=== PATIENT | female | born 1980 | race Caucasian/White ===

== ENCOUNTER 2017-01-12 17:46 | Inpatient (IN) | payer OTHER ==
[~2017-01-12] VITALS: Ht 157.5 cm; Wt 68.0 kg
[2017-01-12] MEDS ORDERED: GABA600T PO (18:19)
[2017-01-12] MEDS ORDERED: CLON-412 PO (18:19)
[2017-01-12] MEDS ORDERED: VANCOMYCIN HCL 1,000 MG, VIAL MATE ADAPTER 1 EACH in D5W 250 ML IV ONE (20:00)
[2017-01-12] MEDS ORDERED: ONDANSETRON 4MG/2ML VIAL (J2405) IV ONE (20:00)
[2017-01-12] MEDS ORDERED: CEFEPIME HCL 2 GM in D5W MINI-BAG PLUS 50 ML IV ONE (20:00)
[2017-01-12] MEDS ORDERED: MORPHINE 4 MG/ML 1ML SYRINGE IV ONE ×2 (20:00→21:45)
[2017-01-12] MEDS ORDERED: NS 1,000 ML IV ONE (20:00)
[2017-01-12] MEDS ORDERED: LIDOCAINE 4% CREAM 5GM (LMX4) TOP ONE (20:00)
[2017-01-12] MEDS ORDERED: LIDOCAINE 2% MDV 20 ML VIAL XX ONE (20:00)
[2017-01-12 21:10] LABS: BASO # 0.1 K/mm3 (0.0-0.2); BASO % 0.5 % (0.0-1.0); EOS # 0.2 K/mm3 (0.0-0.50); EOS % 1.2 % (0.0-3.0); LARGE UNSTAINED CELL # 0.2 K/mm3 (0.0-0.4); LARGE UNSTAINED CELL % 1.3 % (0.0-4.0); LYMPH # 2.8 K/mm3 (1.5-4.5); MEAN CORPUSCULAR HEMOGLOBIN 30.2 pg (27.0-33.0); MEAN CORPUSCULAR HGB CONC 32.1 g/dl (32.0-36.5); MEAN CORPUSCULAR VOLUME 94.1 fl (80.0-96.0); MONO # 0.7 K/mm3 (0.0-0.8); MONO % 4.8 % (0.0-5.0); NEUTROPHILS # 10.7 K/mm3 (1.8-7.7); NEUTROPHILS % 73.1 % (36.0-66.0); PLATELET COUNT, AUTOMATED 379 k/mm3 (150-450); RED CELL DISTRIBUTION WIDTH 12.1 % (11.5-14.5); WHITE BLOOD COUNT 14.6 K/mm3 (4.0-10.0)
[2017-01-12 21:32] LABS: ANION GAP 7 MEQ/L (8-16); BLOOD UREA NITROGEN 12 MG/DL (7-18); CALCIUM LEVEL 8.3 MG/DL (8.5-10.1); CARBON DIOXIDE LEVEL 26 MEQ/L (21-32); CHLORIDE LEVEL 104 MEQ/L (98-107); CREATININE FOR GFR 0.56 MG/DL (0.55-1.02); GLOMERULAR FILTRATION RATE > 60.0 (>60); GLUCOSE, FASTING 128 MG/DL (70-105); POTASSIUM SERUM 4.1 MEQ/L (3.5-5.1); SODIUM LEVEL 137 MEQ/L (136-145)
[2017-01-12 21:40] LABS: ERYTHROCYTE SEDIMENTATION RATE 33 mm/hr (0-20)
[2017-01-12] MEDS ORDERED: NS 1,000 ML IV SCH ×2 (22:46→23:00)
[2017-01-12] MEDS ORDERED: SODIUM CHLORIDE 0.9% 1000 ML IV ONE (23:00)
--- NOTE | 2017-01-12 23:43 | HPEPDOC ---
General Date of Admission Jan 12, 2017 at 22:46 Chief Complaint The patient is a 36-year-old female Presented to the ER with complaints of a left forearm abscess. History of Present Illness Patient is a 36 year old female with a PMHx of recently diagnosed right breast cancer and substance abuse history (Heroin) who presented to the ER with complaint of an abscess. Patient noted that over the last 3 days, she has had a small bump on her left forearm that has progressively worsened to the point where it has become the size of a golf ball. She notes that the area was extremely tender, swollen and red. She denied any drainage from the area. She denies any recent trauma, bug bites or needle use to her arm. She denies any fevers at home. Patient has used IV heroin in the past and reports the last time she used was in September. Since that point she has not used any IV drugs. She reports that she has been taking suboxone that is not prescribed to her to help her control her habit. She reports the last time she used suboxone was yesterday at 4mg SL. She denies any chest pain, shortness of breath, cough, nausea, vomiting, abdominal pain, constipation, diarrhea or urinary symptoms. Home Medications Scheduled Clonidine Hydrochloride (Clonidine HCl) 0.1 Mg Tab 0.1 MG PO TID (Reported) Gabapentin (Gabapentin) 600 Mg Tab 600 MG PO TID (Reported) Allergies Coded Allergies: Codeine (Verified Allergy, Intermediate, hives, 01/12/17) Past Medical History Medical History Recently diagnosed right breast cancer and substance abuse history (Heroin) Surgical History None Family History - Mother with DM2 - Father with DM2 and pancreatic cancer Social History - Denies the use of alcohol; Smoke 1-2 cigarettes occasionally for 5 years, Heroin and marijuana use - Denies recent travel or sick contacts - Lives with boyfriend - Occupation; unemployed forging operator Review of Symptoms Other systems Constitutional: Denies weight loss, change in appetite, or recent trauma Eyes: No visual changes or eye pain Ears, Nose, Throat: Denies nose bleeds, or difficulty swallowing Cardiovascular: Denies chest pain, sweating, or orthopnea Respiratory: Denies cough, wheezing, or shortness of breath GI: Gavino nausea, vomiting, abdominal pain, diarrhea or constipation : Denies pain with urination or frequency Musculoskeletal: Pain at left forearm with abscess Neuro / Psych: Denies muscle weakness or sensory loss Skin: Redness and swelling at left arm at abscess All other review of systems negative; otherwise stated in history of present illness Vital Signs - Vitals: BP 110/52, HR 117, RR 18, Sat 96%RA, Temp 97.8F - General: Lying in bed, No acute distress, Speaking in full sentences, AAOx3 - HEENT: NC, AT, PERRLA, EOMI - CVS: RRR, +S1S2, - Murmurs / rubs / gallops - Lungs: Fair air entry bilaterally, Clear to auscultation, No wheezing / rales / rhonchi - Abdomen: Soft, Non-distended, Non-tender, + Bowel sounds x 4 - Extremities: + PPx4, No lower extremity edema, No calf tenderness - Neuro: No focal motor or sensory defecit - Skin: Left forearm with dressing in place (s/p incision and drainage in ER), no lymphadenopathy or surrounding erythema, tenderness around area Laboratory Data Labs 24H Laboratory Tests 2 01/12/17 20:58: White Blood Count 14.6H, Red Blood Count 4.22, Hemoglobin 12.8, Hematocrit 39.8 , Mean Corpuscular Volume 94.1, Mean Corpuscular Hemoglobin 30.2, Mean Corpuscular Hemoglobin Concent 32.1, Red Cell Distribution Width 12.1, Platelet Count 379, Neutrophils (%) (Auto) 73.1H, Lymphocytes (%) (Auto) 19.0L, Monocytes (%) (Auto) 4.8, Eosinophils (%) (Auto) 1.2, Basophils (%) (Auto) 0.5, Neutrophils # (Auto) 10.7H, Lymphocytes # (Auto) 2.8, Monocytes # (Auto) 0.7, Eosinophils # (Auto) 0.2, Basophils # (Auto) 0.1, Erythrocyte Sedimentation Rate 33H, Large Unclassified Cells # 0.2, Large Unclassified Cells % 1.3 01/12/17 21:06: Anion Gap 7L, C-Reactive Protein, Quantitative 3.98H, Blood Urea Nitrogen 12, Creatinine 0.56, Sodium Level 137, Potassium Level 4.1, Chloride Level 104, Carbon Dioxide Level 26, Calcium Level 8.3L, Glomerular Filtration Rate > 60.0, Lactic Acid (Sepsis) 1.5 CBC/BMP Laboratory Tests 01/12/17 20:58 Red Blood Count 4.22, Mean Corpuscular Volume 94.1, Mean Corpuscular Hemoglobin 30.2, Mean Corpuscular Hemoglobin Concent 32.1, Red Cell Distribution Width 12.1 , Neutrophils (%) (Auto) 73.1 H, Lymphocytes (%) (Auto) 19.0 L, Monocytes (%) ( Auto) 4.8, Eosinophils (%) (Auto) 1.2, Basophils (%) (Auto) 0.5, Neutrophils # ( Auto) 10.7 H, Lymphocytes # (Auto) 2.8, Monocytes # (Auto) 0.7, Eosinophils # ( Auto) 0.2, Basophils # (Auto) 0.1 01/12/17 21:06 Calcium Level 8.3 L Microbiology Microbiology 01/12/17 Blood Culture, Received Pending 01/12/17 Blood Culture, Received Pending Plan / VTE VTE Prophylaxis Ordered?: Yes Plan Plan Abscess and Cellulitis of left arm possibly 2/2 drug use however denies trauma or needle use - Presented with worsening bump on arm for last 3 days, no reported fevers at home - Patient has received an incision and drainage in the ER - Physical reveals tenderness around surrounding area, no lymphadenopathy, dressing in place - s/p Vancomycin and Zosyn in the ER - Leukocytosis of 14, No elevation in lactic acid - Will follow blood cultures, abscess cultures - Will provide minimal morphine for pain control (re: drug abuse history) - will c/w Ceftaroline for coverage of MRSA and gram negative organisms Recently diagnosed right breast cancer - Patient has had a mammogram and biopsy done that was consistent with cancer - Patient is schedule to have a right mastectomy on 01/22 - Follows with Dr. Watts (Surgery) Substance abuse history - Has abuse heroin, and last use was in September - Has been on Clonidine for blood pressure and Gabapentin for restlessness - Will c/w home medications DVT prophylaxis - Will start KARRI Esposito MD Jan 12, 2017 23:42
[2017-01-13 00:30] VITALS: BP 134/72
[2017-01-13] MEDS: ACETAMINOPHEN TAB 650MG DOSE (2X325MG) PO PRN ×2 (00:44→09:29)
[2017-01-13] MEDS: MORPHINE 2 MG/ML 1ML SYRINGE IV PRN ×5 (01:21→20:56)
[2017-01-13 06:00] VITALS: BP 121/72
[2017-01-13] MEDS: CEFTAROLINE FOSAMIL 600 MG in D5W MINI-BAG PLUS 50 ML IV SCH ×2 (06:27→17:59)
[2017-01-13] MEDS: ENOXAPARIN 40 MG/0.4 ML SYRINGE (J1650) SC SCH (09:29)
[2017-01-13] MEDS: cloNIDine 0.1 MG TAB PO SCH ×3 (09:30→20:57)
[2017-01-13] MEDS: GABAPENTIN 300 MG CAP PO SCH ×3 (09:30→20:56)
[2017-01-13] MEDS: NICOTINE 14 MG/24 HR TRANSDERMAL TD SCH (10:19)
[2017-01-13 14:00] VITALS: BP 126/77
--- NOTE | 2017-01-13 15:04 | IPN ---
DATE: 01/13/2017 SUBJECTIVE: Patient is seen and examined in the room today. Patient is still complaining about pain at the left forearm where she had abscess incision and drainage. Patient had a temperature of 101.2 around 1 a.m. She stated her fever has been improving since then. Patient is requesting nicotine patch due to the urge to smoke. OBJECTIVE: VITAL SIGNS: Temperature 99.2, pulse 92, respirations 16, blood pressure 121/72 , pulse oximetry 99% in room air. GENERAL: No sign of acute distress, alert and oriented times three. HEENT: Normocephalic, atraumatic. Extraocular motors grossly intact. CARDIOVASCULAR: Positive S1, S2, regular rate. LUNGS: Clear to auscultation bilaterally. ABDOMEN: Soft, nontender, nondistended. Bowel sounds present. No rebound. No guarding. EXTREMITIES: Left forearm was wrapped with gauze. No active bleeding is noted. No lower extremity edema. No sign of cyanosis. LABORATORY DATA: WBC 14.6, hemoglobin 12.8, hematocrit 39.8, platelet count 379. Sodium 137, potassium 4.1, chloride 104, carbon dioxide 26, BUN 12, creatinine 0.56, GFR greater than 60, fasting glucose 128, lactic acid 1.5, calcium 8.3, C-reactive protein 3.98. ASSESSMENT AND PLAN: 1. Left forearm abscess. Patient stated she has a history of scratching her left forearm with her fake nails multiple times. She felt that was the reason why she started to develop the abscess. Patient was started on ceftaroline. Patient's fever is improving. Pain controlled with morphine. Follow with cultures. 2. Recently diagnosed right breast cancer. Patient has a scheduled right mastectomy on 01/22/2017. Surgeon is Dr. Watts. 3. History of polysubstance abuse. Patient is on clonidine and gabapentin. Previous Urine toxicology positive for opiates, codeine, morphine, methadone, cocaine, and marijuana. 4. Deep venous thrombosis (DVT) prophylaxis, on Lovenox. MTDD
[2017-01-13 22:00] VITALS: BP 117/56
[2017-01-14] MEDS: MORPHINE 2 MG/ML 1ML SYRINGE IV PRN ×4 (05:38→20:08)
[2017-01-14] MEDS: CEFTAROLINE FOSAMIL 600 MG in D5W MINI-BAG PLUS 50 ML IV SCH ×2 (05:39→18:09)
[2017-01-14 06:00] VITALS: BP 107/54
[2017-01-14] MEDS: cloNIDine 0.1 MG TAB PO SCH ×3 (09:00→20:04)
[2017-01-14] MEDS: GABAPENTIN 300 MG CAP PO SCH ×3 (09:26→20:04)
[2017-01-14] MEDS: ENOXAPARIN 40 MG/0.4 ML SYRINGE (J1650) SC SCH (09:26)
[2017-01-14] MEDS: NICOTINE 14 MG/24 HR TRANSDERMAL TD SCH (09:26)
--- NOTE | 2017-01-14 11:57 | IPN ---
DATE OF VISIT: 01/14/2017 SUBJECTIVE: Patient is seen and examined in the room today. With assistance from our staff, patient's dressing was taken of and patient's wound was examined. Patient's still complained about significant pain in her left forearm and even with slight compression, patient was screaming in pain. However, there is no purulent discharge noted. Yesterday, in the afternoon, there was an incident patient went downstairs with her boyfriend without notifying the staff and nursing supervisor special services called and informed. OBJECTIVE: VITAL SIGNS: Temperature is 98.2, pulse 70, respirations 16, blood pressure is 107/54, pulse oximetry is 99% in room air. GENERAL: Moderate to severe distress during wound examination. Alert, oriented times three. HEENT: Normocephalic, atraumatic. Extraocular motors grossly intact. CARDIOVASCULAR: Positive S1, S2, regular rate. LUNGS: Clear to auscultation bilaterally. ABDOMEN: Soft, nontender, nondistended. Bowel sounds present. No rebound. No guarding. EXTREMITIES: Left forearm wounds that . There at least more regression erythema compared to the borders, went by the surgical markers. There is some purulent discharge noted on the dressing. No active bleeding noted. Extremity tendon is still on the erythematous area. However, I cannot appreciate any abscess pockets. There are multiple tattoos throughout her body. No lower extremity edema. No sign of cyanosis. LABORATORY DATA: Patient refused the lab. ASSESSMENT AND PLAN: 1. Left forearm abscess status post incision and drainage. Abscess wound culture result is pending. Preliminary result show gram positive cocci. Patient has been taking Teflaro. Blood culture results pending. 2. Recent diagnosis of right breast cancer. Patient has a scheduled right mastectomy on 01/22/2017. Surgeon is Dr. Watts. 3. History of polysubstance abuse. On clonidine and gabapentin. Urine toxicology positive for opiate and marijuana. 4. Deep venous thrombosis (DVT) prophylaxis. On Lovenox.
[2017-01-14 14:00] VITALS: BP 116/58
[2017-01-14] MEDS: NAPROXEN 250 MG TAB PO SCH (18:51)
[2017-01-14] MEDS ORDERED: MORPHINE 2 MG/ML 1ML SYRINGE IV ONE (19:00)
[2017-01-14 20:04] VITALS: BP 118/74
[2017-01-14] MEDS ORDERED: NAPROXEN 250 MG TAB PO SCH (21:00)
[2017-01-14 22:00] VITALS: BP 118/74
[2017-01-15] MEDS: MORPHINE 2 MG/ML 1ML SYRINGE IV PRN ×2 (00:35→05:01)
[2017-01-15] MEDS: CEFTAROLINE FOSAMIL 600 MG in D5W MINI-BAG PLUS 50 ML IV SCH (05:02)
[2017-01-15 06:00] VITALS: BP 107/55
[2017-01-15] MEDS: NAPROXEN 250 MG TAB PO SCH (06:22)
[2017-01-15 07:02] LABS: BASO % 0.6 % (0.0-1.0); EOS # 0.1 K/mm3 (0.0-0.50); EOS % 2.2 % (0.0-3.0); LARGE UNSTAINED CELL # 0.1 K/mm3 (0.0-0.4); LARGE UNSTAINED CELL % 1.9 % (0.0-4.0); LYMPH # 2.1 K/mm3 (1.5-4.5); LYMPH % 36.6 % (24.0-44.0); MEAN CORPUSCULAR HEMOGLOBIN 30.1 pg (27.0-33.0); MEAN CORPUSCULAR HGB CONC 31.8 g/dl (32.0-36.5); MEAN CORPUSCULAR VOLUME 94.7 fl (80.0-96.0); MONO # 0.4 K/mm3 (0.0-0.8); MONO % 7.4 % (0.0-5.0); NEUTROPHILS % 51.3 % (36.0-66.0); PLATELET COUNT, AUTOMATED 327 k/mm3 (150-450); WHITE BLOOD COUNT 5.8 K/mm3 (4.0-10.0)
[2017-01-15 07:16] LABS: ALBUMIN 3.1 GM/DL (3.2-5.2); ALBUMIN/GLOBULIN RATIO 0.89 (1.00-1.93); ALKALINE PHOSPHATASE 68 U/L (45-117); ALT/SGPT 31 U/L (12-78); ANION GAP 8 MEQ/L (8-16); AST/SGOT 30 U/L (15-37); BILIRUBIN,TOTAL 0.2 MG/DL (0.2-1.0); BLOOD UREA NITROGEN 12 MG/DL (7-18); CALCIUM LEVEL 8.7 MG/DL (8.5-10.1); CARBON DIOXIDE LEVEL 27 MEQ/L (21-32); CHLORIDE LEVEL 108 MEQ/L (98-107); CREATININE FOR GFR 0.55 MG/DL (0.55-1.02); GLOMERULAR FILTRATION RATE > 60.0 (>60); GLUCOSE, FASTING 98 MG/DL (70-105); MAGNESIUM LEVEL 2.1 MG/DL (1.8-2.4); POTASSIUM SERUM 4.3 MEQ/L (3.5-5.1); SODIUM LEVEL 143 MEQ/L (136-145); TOTAL PROTEIN 6.6 GM/DL (6.4-8.2)
--- NOTE | 2017-01-15 17:31 | DSES ---
DATE OF ADMISSION: 01/12/2017 DATE OF DISCHARGE: 01/15/2017 - AGAINST MEDICAL ADVICE CONSULTANTS: None. PROCEDURES: Left forearm abscess incision and drainage. COMPLICATIONS: None. ADMISSION/DISCHARGE DIAGNOSES: 1. Left forearm abscess status post incision and drainage. 2. Recent diagnosis of breast cancer. 3. Polysubstance abuse. HOSPITALIZATION COURSE: Patient is a 36-year-old female who presented to [facility] on 01/12/2017, with left forearm abscess. Incision and drainage was performed by the emergency department (ED) staff and culture was taken. Patient was started on empiric antibiotic of Teflaro. Due to patient's polysubstance use, pain medication was adjusted with caution. All the patient's vital signs and blood work, including cultures, were reviewed on a daily basis. On 01/15/2017, before gram stain culture finalization, patient decided to sign herself out AGAINST MEDICAL ADVICE. During this hospitalization, patient had an incident where she walked out of her room with her significant other and she walked to the first floor lobby without informing any medical staff and patient walked back to the room and the nursing supervisor irrigation had to be involved with the incident. OBJECTIVE: VITAL SIGNS: Temperature 97.1, pulse 72, respirations 16, blood pressure 107/55, pulse oximetry 100% in room air. LABORATORY DATA: WBC 5.8, hemoglobin 12.8, hematocrit 40.2, platelet count 327. Sodium 143, potassium 4.3, chloride 108, carbon dioxide 27, BUN 12, creatinine 0.55, GFR greater than 60, fasting glucose 98, lactic acid 1.5, calcium 8.7, magnesium 2.1, total bilirubin 0.2, AST 30, ALT 31, alkaline phosphatase 68, total protein 6.6, albumin 3.1. Urine toxicology showed positive for opiates and marijuana. Prior urine toxicology showed patient is positive for marijuana in 2009. Patient started showing positive for opiates, codeine, and morphine in 2010. Patient also tested positive for methadone in 2010. Patient also tested positive for cocaine in 2010. MICROBIOLOGY: Blood cultures are negative after 48 hours. Wound abscess culture is pending. DISCHARGE INSTRUCTIONS: Patient signed out AGAINST MEDICAL ADVICE. I explained to the patient that currently patient is on empiric antibiotics and patient still requires active wound care and to be continued on IV antibiotics. I explained to the patient the benefits of staying in the hospital and the risks of signing out AGAINST MEDICAL ADVICE, and patient does not have any established primary care provider (PCP). However, patient insists that she does not want to stay in the hospital, and signed out AGAINST MEDICAL ADVICE. DISCHARGE CONDITION: Guarded. DISCHARGE TIME: Greater than 30 minutes.
== END 2017-01-15 08:45 | disposition left against medical advice (07) | DRG 383 ==
LOC: M ED 18:57 → M ED INP 22:46 → M MS5PR 01-13 00:27
PROVIDERS: ADMIT Internal Medicine; ATTEND Internal Medicine
DX: L02.414 Cutaneous abscess of left upper limb (principal); C50.919 Malignant neoplasm of unspecified site of unspecified female breast; F12.10 Cannabis abuse, uncomplicated; F11.10 Opioid abuse, uncomplicated; Z79.899 Other long term (current) drug therapy; Z88.5 Allergy status to narcotic agent

== ENCOUNTER → 2017-01-17 | Outpatient (CLI) | payer OTHER ==
[~2017-01-17] MED LIST: CLON-412 PO; GABA600T PO
--- NOTE | 2017-01-17 16:30 | REP ---
MR BRAIN WITHOUT CONTRAST: HISTORY: Breast carcinoma. No contrast was administered due to poor venous access. There are no areas of abnormal signal intensity in the brain. There is no intraparenchymal hemorrhage, infarct, mass or midline shift. The ventricular system is normal in appearance. There is no extracerebral collection. The sinuses are clear. IMPRESSION: There is no intracranial lesion. Signed by Moris Mcclelland MD 01/17/2017 04:35 P
== END ==
LOC: M RAD 15:09
PROVIDERS: ATTEND Internal Medicine Hematology & Oncology
DX: R51 Headache (principal); H53.9 Unspecified visual disturbance; C50.919 Malignant neoplasm of unspecified site of unspecified female breast

== ENCOUNTER 2017-03-21 14:22 | Emergency (ER) | payer OTHER ==
[~2017-03-21] VITALS: Ht 157.5 cm; Wt 61.2 kg
[2017-03-21 14:22] VITALS: BP 126/81
[2017-03-21] MEDS ORDERED: MIRT30TA3 (14:53)
[2017-03-21] MEDS ORDERED: TAMO20TA4 (14:53)
[2017-03-21] MEDS ORDERED: IBUP600T26 PO (14:53)
[2017-03-21] MEDS ORDERED: PRED20TA PO (15:18)
[2017-03-21] MEDS ORDERED: GABA600T PO (15:18)
== END 2017-03-21 15:28 | disposition home or self-care (01) ==
LOC: M ED 15:25
DX: G56.01 Carpal tunnel syndrome, right upper limb (principal); B18.2 Chronic viral hepatitis C; F11.10 Opioid abuse, uncomplicated; F17.210 Nicotine dependence, cigarettes, uncomplicated; G25.81 Restless legs syndrome; Z85.3 Personal history of malignant neoplasm of breast; Z79.899 Other long term (current) drug therapy; I10 Essential (primary) hypertension; Z87.442 Personal history of urinary calculi

== ENCOUNTER 2017-03-25 21:11 | Emergency (ER) | payer OTHER ==
[~2017-03-25] VITALS: Ht 157.5 cm; Wt 59.0 kg
[~2017-03-25 21:11] MED LIST changes: +IBUP600T26 PO; +MIRT30TA3; +PRED20TA PO; +TAMO20TA4
[2017-03-25 21:12] VITALS: BP 142/91
[2017-03-25] MEDS ORDERED: KETOROLAC 60 MG/2 ML VIAL (J1885) IM ONE (22:15)
--- NOTE | 2017-03-25 23:00 | REPUSA ---
Clinical statement: Pain, swelling. Findings: Venous Doppler imaging of the right upper extremity was performed. The internal jugular vei n compresses normally and demonstrates normal color Doppler flow. Normal venous wave forms are seen w ithin the subclavian vein. The axillary, brachial, basilic, and cephalic veins compress normally and demonstrate normal color Doppler flow. Normal augmentation is seen. Impression: No evidence of deep vein thrombosis in the right upper extremity.
== END 2017-03-27 00:02 | disposition home or self-care (01) ==
LOC: M ED 21:11
DX: G56.01 Carpal tunnel syndrome, right upper limb (principal); I10 Essential (primary) hypertension; B18.2 Chronic viral hepatitis C; G25.81 Restless legs syndrome; Z85.3 Personal history of malignant neoplasm of breast; F19.10 Other psychoactive substance abuse, uncomplicated; Z79.899 Other long term (current) drug therapy; Z79.52 Long term (current) use of systemic steroids; Z88.5 Allergy status to narcotic agent; F17.210 Nicotine dependence, cigarettes, uncomplicated

== ENCOUNTER 2017-04-25 15:30 | Emergency (ER) | payer OTHER ==
[~2017-04-25] VITALS: Ht 157.5 cm; Wt 66.2 kg
[~2017-04-25 15:30] MED LIST changes: +IBUP-1022 PO; -IBUP600T26 PO
[2017-04-25 15:31] VITALS: BP 114/70
== END 2017-04-25 17:11 | disposition left against medical advice (07) ==
LOC: M ED 15:30
DX: M79.643 Pain in unspecified hand (principal); Z53.29 Procedure and treatment not carried out because of patient's decision for other reasons

== ENCOUNTER 2017-05-22 17:03 | Emergency (ER) | payer OTHER ==
[~2017-05-22] VITALS: Ht 154.9 cm; Wt 68.4 kg
[2017-05-22 17:03] VITALS: BP 139/84
== END 2017-05-22 17:28 | disposition left against medical advice (07) ==
LOC: M ED 17:03
DX: K08.89 Other specified disorders of teeth and supporting structures (principal); Z53.29 Procedure and treatment not carried out because of patient's decision for other reasons

== ENCOUNTER 2017-06-19 12:34 | Emergency (ER) | payer OTHER ==
[~2017-06-19] VITALS: Ht 157.5 cm; Wt 63.6 kg
[2017-06-19] MEDS ORDERED: NAPROXEN 250 MG TAB PO ONE (13:45)
[2017-06-19] MEDS ORDERED: BACTRIM 160MG/800MG DS TAB PO ONE (13:45)
[2017-06-19] MEDS ORDERED: IBUP80TA PO (13:48)
[2017-06-19] MEDS ORDERED: MUCI600T37 PO (13:48)
[2017-06-19] MEDS ORDERED: CLAR1TAB2 PO (13:48)
[2017-06-19] MEDS ORDERED: BACT800T5 PO (13:48)
[2017-06-19 13:56] VITALS: BP 146/92
== END 2017-06-19 14:03 | disposition home or self-care (01) ==
LOC: M ED 12:34
DX: K04.7 Periapical abscess without sinus (principal); J01.90 Acute sinusitis, unspecified; Z72.0 Tobacco use

== ENCOUNTER → 2017-06-28 | Outpatient (CLI) | payer OTHER ==
[~2017-06-28] MED LIST changes: +BACT800T5 PO; +CLAR1TAB2 PO; +IBUP80TA PO; +MUCI600T37 PO
[2017-06-28 15:45] LABS: ANION GAP 7 MEQ/L (8-16); BLOOD UREA NITROGEN 6 MG/DL (7-18); CALCIUM LEVEL 8.4 MG/DL (8.5-10.1); CARBON DIOXIDE LEVEL 28 MEQ/L (21-32); CHLORIDE LEVEL 103 MEQ/L (98-107); CREATININE FOR GFR 0.55 MG/DL (0.55-1.02); GLOMERULAR FILTRATION RATE > 60.0 (>60); GLUCOSE, FASTING 93 MG/DL (70-105); SODIUM LEVEL 138 MEQ/L (136-145)
[2017-06-28 15:48] LABS: MEAN CORPUSCULAR HEMOGLOBIN 30.9 pg (27.0-33.0); MEAN CORPUSCULAR HGB CONC 32.8 g/dl (32.0-36.5); MEAN CORPUSCULAR VOLUME 93.9 fl (80.0-96.0); RED CELL DISTRIBUTION WIDTH 12.6 % (11.5-14.5)
== END ==
LOC: M LAB 14:42
PROVIDERS: ATTEND Anesthesiology Pain Medicine
DX: M25.40 Effusion, unspecified joint (principal)

== ENCOUNTER → 2017-10-17 | Outpatient (REF) | payer OTHER | LOC: M LAB REF 13:36 | PROVIDERS: ATTEND Family Medicine Addiction Medicine | DX: F19.10 Other psychoactive substance abuse, uncomplicated (principal) ==

== ENCOUNTER → 2017-10-31 | Outpatient (REF) | payer OTHER ==
[2017-11-04 14:12] LABS: AMPHETAMINE SCREEN, URINE Negative ng/mL (Cutoff=1000); BARBITURATES SCREEN, URINE Negative ng/mL (Cutoff=200); BENZODIAZEPINES, URINE SCREEN Negative ng/mL (Cutoff=200); CANNABINOID SCREEN, URINE See Final Results ng/mL (Cutoff=20); CANNABINOID, URINE Positive (Cutoff=20); CARBOXY THC (GC/MS) 70 ng/mL (Cutoff=10); COCAINE SCREEN, URINE Negative ng/mL (Cutoff=300); FENTANYL URINE SCREEN Negative pg/mL (Cutoff=2000); METHADONE, URINE SCREEN Negative ng/mL (Cutoff=300); OPIATE SCREEN, URINE Negative ng/mL (Cutoff=300); OXYCODONE, SCREEN, URINE Negative ng/mL (Cutoff=100); PCP SCREEN, URINE Negative ng/mL (Cutoff=25); SPECIFIC GRAVITY, URINE 1.006 (.); pH, URINE 5.4 (4.5-8.9)
== END ==
LOC: M LAB REF 13:31
DX: F19.10 Other psychoactive substance abuse, uncomplicated (principal)

== ENCOUNTER → 2017-11-14 | Outpatient (REF) | payer OTHER ==
[2017-11-20 00:06] LABS: AMPHETAMINE SCREEN, URINE Negative ng/mL (Cutoff=1000); BARBITURATES SCREEN, URINE Negative ng/mL (Cutoff=200); BENZODIAZEPINES, URINE SCREEN Negative ng/mL (Cutoff=200); CANNABINOID SCREEN, URINE See Final Results ng/mL (Cutoff=20); CANNABINOID, URINE Positive (Cutoff=20); CARBOXY THC (GC/MS) 355 ng/mL (Cutoff=10); COCAINE SCREEN, URINE Negative ng/mL (Cutoff=300); FENTANYL URINE SCREEN Negative pg/mL (Cutoff=2000); METHADONE, URINE SCREEN Negative ng/mL (Cutoff=300); NALOXONE RESULT Positive (.); OPIATE SCREEN, URINE Negative ng/mL (Cutoff=300); OXYCODONE, SCREEN, URINE Negative ng/mL (Cutoff=100); PCP SCREEN, URINE Negative ng/mL (Cutoff=25); SPECIFIC GRAVITY, URINE 1.024 (.); URINE BUPRENORPHINE Positive (.); URINE BUPRENORPHINE Positive (Cutoff=10); URINE BUPRENORPHINE See Final Results ng/mL (Cutoff=10); URINE BUPRENORPHINE CONFIRM 300 ng/mL (Cutoff=10); URINE NORBUPRENORPHINE Positive (.); URINE NORBUPRENORPHINE CONFIRM 562 ng/mL (Cutoff=10); pH, URINE 5.6 (4.5-8.9)
== END ==
LOC: M LAB REF 13:11
DX: F11.11 Opioid abuse, in remission (principal)

== ENCOUNTER → 2017-11-28 | Outpatient (REF) | payer OTHER | LOC: M LAB REF 12:07 | DX: F11.11 Opioid abuse, in remission (principal) ==

== ENCOUNTER 2017-12-08 16:25 | Emergency (ER) | payer OTHER | END 2017-12-08 17:28 | disposition home or self-care (01) | LOC: M ED 16:25 | DX: G62.9 Polyneuropathy, unspecified (principal); Z85.3 Personal history of malignant neoplasm of breast; Z79.899 Other long term (current) drug therapy; Z79.891 Long term (current) use of opiate analgesic; Z88.5 Allergy status to narcotic agent; F17.210 Nicotine dependence, cigarettes, uncomplicated | CPT/HCPCS: 99282 ==

== ENCOUNTER → 2017-12-19 | Outpatient (REF) | payer OTHER ==
[2017-12-24 14:10] LABS: AMPHETAMINE SCREEN, URINE Negative ng/mL (Cutoff=1000); BARBITURATES SCREEN, URINE Negative ng/mL (Cutoff=200); BENZODIAZEPINES, URINE SCREEN Negative ng/mL (Cutoff=200); CANNABINOID SCREEN, URINE See Final Results ng/mL (Cutoff=20); CANNABINOID, URINE Positive (Cutoff=20); CARBOXY THC (GC/MS) >300 ng/mL (Cutoff=10); COCAINE SCREEN, URINE Negative ng/mL (Cutoff=300); CREATININE, URINE 160.2 mg/dL (20.0-300.0); FENTANYL URINE SCREEN Negative pg/mL (Cutoff=2000); METHADONE, URINE SCREEN Negative ng/mL (Cutoff=300); NALOXONE RESULT Positive (.); OPIATE SCREEN, URINE Negative ng/mL (Cutoff=300); OXYCODONE, SCREEN, URINE Negative ng/mL (Cutoff=100); PCP SCREEN, URINE Negative ng/mL (Cutoff=25); SPECIFIC GRAVITY, URINE 1.024 (.); URINE BUPRENORPHINE Positive (.); URINE BUPRENORPHINE Positive (Cutoff=10); URINE BUPRENORPHINE See Final Results ng/mL (Cutoff=10); URINE BUPRENORPHINE CONFIRM 280 ng/mL (Cutoff=10); URINE NORBUPRENORPHINE Positive (.); URINE NORBUPRENORPHINE CONFIRM 778 ng/mL (Cutoff=10); pH, URINE 5.5 (4.5-8.9)
== END ==
LOC: M LAB REF 13:02
DX: F11.11 Opioid abuse, in remission (principal)

== ENCOUNTER → 2017-12-26 | Outpatient (REF) | payer OTHER, MEDICAID ==
[2017-12-26 13:41] LABS: HEPATITIS B SURFACE ANTIBODY POSITIVE (POSITIVE)
[2017-12-26 13:42] LABS: ALBUMIN 4.1 GM/DL (3.2-5.2); ALBUMIN/GLOBULIN RATIO 1.24 (1.00-1.93); ALKALINE PHOSPHATASE 74 U/L (45-117); ALT/SGPT 37 U/L (12-78); ANION GAP 8 MEQ/L (8-16); AST/SGOT 29 U/L (7-37); BILIRUBIN,TOTAL 0.3 MG/DL (0.2-1.0); BLOOD UREA NITROGEN 9 MG/DL (7-18); CALCIUM LEVEL 8.8 MG/DL (8.5-10.1); CARBON DIOXIDE LEVEL 26 MEQ/L (21-32); CHLORIDE LEVEL 106 MEQ/L (98-107); CREATININE FOR GFR 0.51 MG/DL (0.55-1.30); FERRITIN 35 NG/ML (8-252); GLOMERULAR FILTRATION RATE > 60.0 (>60); GLUCOSE, FASTING 89 MG/DL (70-100); SODIUM LEVEL 140 MEQ/L (136-145); TOTAL PROTEIN 7.4 GM/DL (6.4-8.2)
[2017-12-26 13:44] LABS: ESTIMATED AVERAGE GLUCOSE 114 MG/DL (60-110); HEMOGLOBIN A1c 5.6 %
[2017-12-26 14:23] LABS: HEPATITIS A ANTIBODY IGM NEGATIVE (NEGATIVE)
[2017-12-26 15:08] LABS: HEPATITIS C VIRUS ABY INDEX > 11.0 INDEX (<0.8)
[2017-12-28 10:14] LABS: HEPATITIS A IgG TOTAL Positive (Negative)
[2017-12-28 10:14] LABS: HCV RNA NAA QUALITATIVE Positive (Negative); HEPATITIS B CORE ANTIBODY IGG Negative (Negative)
== END ==
LOC: M LAB REF 12:37
DX: Z00.00 Encounter for general adult medical examination without abnormal findings (principal)
CPT/HCPCS: 83036

== ENCOUNTER → 2018-01-02 | Outpatient (REF) | payer OTHER, MEDICAID | LOC: M LAB REF 11:22 | DX: F11.11 Opioid abuse, in remission (principal) ==

== ENCOUNTER → 2018-01-16 | Outpatient (REF) | payer OTHER, MEDICAID | LOC: M LAB REF 12:06 | DX: F11.11 Opioid abuse, in remission (principal) ==

== ENCOUNTER → 2018-01-29 | Outpatient (REF) | payer OTHER, MEDICAID | LOC: M LAB REF 01-30 12:14 | DX: F11.11 Opioid abuse, in remission (principal) ==

== ENCOUNTER → 2018-02-13 | Outpatient (REF) | payer OTHER, MEDICAID ==
[2018-02-13 14:04] LABS: THYROID STIMULATING HORMONE 0.378 uIU/ML (0.358-3.740)
[2018-02-13 14:04] LABS: THYROXINE (T4) 9.7 UG/DL (4.5-12.0)
[2018-02-15 10:33] LABS: TOTAL T3 135.6 NG/DL (60.0-181.0)
== END ==
LOC: M LAB REF 11:01
DX: R61 Generalized hyperhidrosis (principal); F11.11 Opioid abuse, in remission

== ENCOUNTER → 2018-02-27 | Outpatient (REF) | payer OTHER, MEDICAID | LOC: M LAB REF 12:09 | DX: F11.11 Opioid abuse, in remission (principal) ==

== ENCOUNTER → 2018-03-13 | Outpatient (REF) | payer MEDICARE, OTHER, MEDICAID ==
[2018-03-21 00:11] LABS: AMPHETAMINE SCREEN, URINE Negative ng/mL (Cutoff=1000); BARBITURATES SCREEN, URINE Negative ng/mL (Cutoff=200); BENZODIAZEPINES, URINE SCREEN Negative ng/mL (Cutoff=200); CANNABINOID SCREEN, URINE See Final Results ng/mL (Cutoff=20); CANNABINOID, URINE Positive (Cutoff=20); CARBOXY THC (GC/MS) 298 ng/mL (Cutoff=10); COCAINE SCREEN, URINE Negative ng/mL (Cutoff=300); CREATININE, URINE 227.7 mg/dL (20.0-300.0); FENTANYL URINE SCREEN Negative pg/mL (Cutoff=2000); METHADONE, URINE SCREEN Negative ng/mL (Cutoff=300); NALOXONE RESULT Positive (.); OPIATE SCREEN, URINE Negative ng/mL (Cutoff=300); OXYCODONE, SCREEN, URINE Negative ng/mL (Cutoff=100); PCP SCREEN, URINE Negative ng/mL (Cutoff=25); URINE BUPRENORPHINE Positive (.); URINE BUPRENORPHINE Positive (Cutoff=10); URINE BUPRENORPHINE See Final Results ng/mL (Cutoff=10); URINE BUPRENORPHINE CONFIRM 906 ng/mL (Cutoff=10); URINE NORBUPRENORPHINE Positive (.); URINE NORBUPRENORPHINE CONFIRM 1454 ng/mL (Cutoff=10); pH, URINE 5.6 (4.5-8.9)
== END ==
LOC: M LAB REF 11:49
DX: F11.11 Opioid abuse, in remission (principal)
CPT/HCPCS: 80362; G0480

== ENCOUNTER → 2018-03-27 | Outpatient (REF) | payer OTHER, MEDICAID ==
[2018-04-03 00:07] LABS: AMPHETAMINE SCREEN, URINE Negative ng/mL (Cutoff=1000); BARBITURATES SCREEN, URINE Negative ng/mL (Cutoff=200); BENZODIAZEPINES, URINE SCREEN Negative ng/mL (Cutoff=200); CANNABINOID SCREEN, URINE See Final Results ng/mL (Cutoff=20); CANNABINOID, URINE Positive (Cutoff=20); CARBOXY THC (GC/MS) >300 ng/mL (Cutoff=10); COCAINE SCREEN, URINE Negative ng/mL (Cutoff=300); CREATININE, URINE 116.2 mg/dL (20.0-300.0); FENTANYL URINE SCREEN Negative pg/mL (Cutoff=2000); METHADONE, URINE SCREEN Negative ng/mL (Cutoff=300); OPIATE SCREEN, URINE Negative ng/mL (Cutoff=300); OXYCODONE, SCREEN, URINE Negative ng/mL (Cutoff=100); PCP SCREEN, URINE Negative ng/mL (Cutoff=25); SPECIFIC GRAVITY, URINE 1.017 (.); pH, URINE 5.4 (4.5-8.9)
== END ==
LOC: M LAB REF 11:45
DX: F11.11 Opioid abuse, in remission (principal)

== ENCOUNTER → 2018-08-12 | Outpatient (REF) | payer OTHER ==
[2018-08-12 16:06] LABS: ALBUMIN 3.7 GM/DL (3.2-5.2); ALBUMIN/GLOBULIN RATIO 1.12 (1.00-1.93); ALKALINE PHOSPHATASE 71 U/L (45-117); ALT/SGPT 26 U/L (12-78); ANION GAP 6 MEQ/L (8-16); AST/SGOT 21 U/L (7-37); BILIRUBIN,TOTAL 0.2 MG/DL (0.2-1.0); BLOOD UREA NITROGEN 5 MG/DL (7-18); CARBON DIOXIDE LEVEL 29 MEQ/L (21-32); CHLORIDE LEVEL 106 MEQ/L (98-107); CREATININE FOR GFR 0.57 MG/DL (0.55-1.30); GLOMERULAR FILTRATION RATE > 60.0 (>60); GLUCOSE, FASTING 95 MG/DL (70-100); POTASSIUM SERUM 4.2 MEQ/L (3.5-5.1); SODIUM LEVEL 141 MEQ/L (136-145)
[2018-08-12 16:49] LABS: BASO # 0.1 10^3/uL (0.0-0.2); BASO % 0.9 % (0.0-1.0); EOS # 0.1 10^3/uL (0.0-0.50); EOS % 1.1 % (0.0-3.0); HEMATOCRIT 37.5 % (36.0-47.0); HEMOGLOBIN 12.1 g/dl (12.0-15.5); IMMATURE GRANULOCYTE % 0.2 % (0-3.0); LYMPH # 2.2 10^3/uL (1.5-4.5); LYMPH % 34.9 % (24.0-44.0); MEAN CORPUSCULAR HEMOGLOBIN 30.2 pg (27.0-33.0); MEAN CORPUSCULAR HGB CONC 32.3 g/dl (32.0-36.5); MEAN CORPUSCULAR VOLUME 93.5 fl (80.0-96.0); MONO # 0.6 10^3/uL (0.0-0.8); MONO % 9.1 % (0.0-5.0); NEUTROPHILS # 3.4 10^3/uL (1.8-7.7); NEUTROPHILS % 53.8 % (36.0-66.0); PLATELET COUNT, AUTOMATED 326 10^3/uL (150-450); RED BLOOD COUNT 4.01 10^6/uL (4.00-5.40); WHITE BLOOD COUNT 6.4 10^3/uL (4.0-10.0)
[2018-08-14 10:53] LABS: HIV 1&2 SCREEN CENTAUR NEGATIVE (NEGATIVE)
[2018-08-17 00:08] LABS: ALPHA 2-MACROGLOBULIN 187 mg/dL (110-276); ALT 23 IU/L (0-40); APOLIPOPROTEIN A-1 104 mg/dL (116-209); FIBROSIS SCORE 0.03 (0.00-0.21); GGT 10 IU/L (0-60); HAPTOGLOBIN 177 mg/dL (34-200); HEPATITIS C QUANTITATION 602700 IU/mL (.); HEPATITIS C VIRUS GENOTYPE 3 (.); NECROINFLAM SCORE 0.07 (0.00-0.17); NECROINFLAMM GRADE A0-No activity (.); TOTAL BILIRUBIN 0.1 mg/dL (0.0-1.2)
== END ==
LOC: M SFHCPLAZ 14:13
DX: B18.2 Chronic viral hepatitis C (principal)

== ENCOUNTER → 2018-09-04 | Outpatient (REF) | payer OTHER ==
[2018-09-04 12:12] LABS: ALBUMIN 3.6 GM/DL (3.2-5.2); ALBUMIN/GLOBULIN RATIO 1.06 (1.00-1.93); ALKALINE PHOSPHATASE 90 U/L (45-117); ALT/SGPT 21 U/L (12-78); AST/SGOT 21 U/L (7-37); BILIRUBIN,DIRECT < 0.1 MG/DL (0.0-0.2); BILIRUBIN,TOTAL 0.3 MG/DL (0.2-1.0)
[2018-09-06 11:39] LABS: HEPATITIS C QUANTITATION <15 IU/mL (.)
== END ==
LOC: M SFHCPLAZ 09:26
DX: B18.2 Chronic viral hepatitis C (principal)

== ENCOUNTER → 2018-09-12 | Outpatient (REF) | payer OTHER ==
[2018-09-12 16:35] LABS: BASO # 0.1 10^3/uL (0.0-0.2); BASO % 0.8 % (0.0-1.0); EOS # 0.1 10^3/uL (0.0-0.50); EOS % 1.1 % (0.0-3.0); HEMATOCRIT 38.1 % (36.0-47.0); HEMOGLOBIN 12.8 g/dl (12.0-15.5); IMMATURE GRANULOCYTE % 0.2 % (0-3.0); LYMPH # 3.2 10^3/uL (1.5-4.5); LYMPH % 37.5 % (24.0-44.0); MEAN CORPUSCULAR HEMOGLOBIN 30.8 pg (27.0-33.0); MEAN CORPUSCULAR HGB CONC 33.6 g/dl (32.0-36.5); MEAN CORPUSCULAR VOLUME 91.8 fl (80.0-96.0); MONO # 0.6 10^3/uL (0.0-0.8); MONO % 7.1 % (0.0-5.0); NEUTROPHILS # 4.5 10^3/uL (1.8-7.7); NEUTROPHILS % 53.3 % (36.0-66.0); PLATELET COUNT, AUTOMATED 278 10^3/uL (150-450); RED BLOOD COUNT 4.15 10^6/uL (4.00-5.40); RED CELL DISTRIBUTION WIDTH 12.2 % (11.5-14.5); WHITE BLOOD COUNT 8.5 10^3/uL (4.0-10.0)
[2018-09-12 16:43] LABS: ALBUMIN 4.2 GM/DL (3.2-5.2); ALBUMIN/GLOBULIN RATIO 1.11 (1.00-1.93); ALKALINE PHOSPHATASE 96 U/L (45-117); ALT/SGPT 19 U/L (12-78); ANION GAP 8 MEQ/L (8-16); AST/SGOT 16 U/L (7-37); BILIRUBIN,TOTAL 0.2 MG/DL (0.2-1.0); BLOOD UREA NITROGEN 9 MG/DL (7-18); CALCIUM LEVEL 9.2 MG/DL (8.5-10.1); CARBON DIOXIDE LEVEL 25 MEQ/L (21-32); CHLORIDE LEVEL 104 MEQ/L (98-107); CREATININE FOR GFR 0.53 MG/DL (0.55-1.30); GLOMERULAR FILTRATION RATE > 60.0 (>60); GLUCOSE, FASTING 78 MG/DL (70-100); POTASSIUM SERUM 4.3 MEQ/L (3.5-5.1); RHEUMATOID FACTOR QUANT < 10.0 IU/ML (<15.0); SODIUM LEVEL 137 MEQ/L (136-145)
[2018-09-12 17:16] LABS: ERYTHROCYTE SEDIMENTATION RATE 17 mm/hr (0-20)
[2018-09-12 17:26] LABS: ESTIMATED AVERAGE GLUCOSE 117 MG/DL (60-110); HEMOGLOBIN A1c 5.7 %
[2018-09-12 19:30] LABS: VITAMIN B12 LEVEL 721 PG/ML
[2018-09-12 20:13] LABS: FOLATE 13.4 NG/ML
[2018-09-17 10:08] LABS: DRVV SCREEN 35.2 SEC
[2018-09-17 10:23] LABS: PTT LUPUS TYPE ANTICOAG SCREEN 0.9 (0-1.2)
[2018-09-17 12:44] LABS: ALBUMIN % 56.3 % (55.8-66.1); ALPHA-1-GLOBULIN % 4.8 % (2.9-4.9); ALPHA-2-GLOBULINS % 11.7 % (7.1-11.8); BETA-1-GLOBULINS % 6.9 % (4.7-7.2)
[2018-09-17 12:45] LABS: ALPHA-1-GLOBULINS 0.38 GM/DL (0.17-0.41); ALPHA-2-GLOBULINS 0.94 GM/DL (0.42-0.99); BETA-1-GLOBULINS 0.55 GM/DL (0.28-0.60); BETA-2-GLOBULINS 0.35 GM/DL (0.19-0.55); BETA-2-GLOBULINS % 4.4 % (3.2-6.5); GAMMA GLOBULIN % 15.9 % (11.1-18.8); GAMMA GLOBULINS 1.27 GM/DL (0.65-1.58)
[2018-09-18 08:06] LABS: ANCA-ATYPICAL <1:20 titer (Neg:<1:20); ANTI DOUBLE STRAND-DNA AB <1 IU/mL (0-9); ANTINUCLEAR ANTIBODIES DIRECT Negative (Negative); CYTOPLASMIC NEUTROP AB ANCA-C <1:20 titer (Neg:<1:20); Lyme Disease IgG Ab 18 kDa Ban Present (.); Lyme Disease IgG Ab 23 kDa Ban Absent (.); Lyme Disease IgG Ab 28 kDa Ban Present (.); Lyme Disease IgG Ab 30 kDa Ban Absent (.); Lyme Disease IgG Ab 39 kDa Ban Present (.); Lyme Disease IgG Ab 41 kDa Ban Present (.); Lyme Disease IgG Ab 45 kDa Ban Absent (.); Lyme Disease IgG Ab 58 kDa Ban Present (.); Lyme Disease IgG Ab 66 kDa Ban Absent (.); Lyme Disease IgG Ab 93 kDa Ban Present (.); Lyme Disease IgG West Blot Int Positive (.); Lyme Disease IgG/IgM Antibodie 2.82 ISR (0.00-0.90); Lyme Disease IgM Ab 23 kDa Ban Present (.); Lyme Disease IgM Ab 39 kDa Ban Present (.); Lyme Disease IgM Ab 41 kDa Ban Absent (.); Lyme Disease IgM Ab Quantitati <0.80 index (0.00-0.79); Lyme Disease IgM West Blot Int Positive (.); PERINUCLEAR AB ANCA-P <1:20 titer (Neg:<1:20); SJOGREN'S ANTI SS-A <0.2 AI (0.0-0.9); SJOGREN'S ANTI SS-B <0.2 AI (0.0-0.9); VITAMIN B6,PYRIDOXAL PHOSPHATE 26.6 ug/L (2.0-32.8); VITAMIN E(ALPHA TOCOPHEROL) 9.2 mg/L (5.9-19.4); VITAMIN E(GAMMA TOCOPHEROL) 0.9 mg/L (0.7-4.9)
== END ==
LOC: M LABDRAWP 10:08
DX: G62.9 Polyneuropathy, unspecified (principal)
CPT/HCPCS: 82746

== ENCOUNTER 2018-09-18 10:54 | Emergency (ER) | payer OTHER ==
[2018-09-18] MEDS: diazePAM 5 MG TAB PO (12:24)
[2018-09-18] MEDS: KETOROLAC 60 MG/2 ML VIAL (J1885) IM (12:26)
== END 2018-09-18 13:12 | disposition home or self-care (01) ==
LOC: M ED 10:54
DX: M62.830 Muscle spasm of back (principal); Z79.899 Other long term (current) drug therapy; Z88.5 Allergy status to narcotic agent
CPT/HCPCS: J1885

== ENCOUNTER → 2020-10-05 | Outpatient (CLI) | payer OTHER ==
[~2020-10-05] MED LIST changes: +BUPR8SUB; +DOXE50CA; +DOXE50CA PO; -GABA600T PO; +GABA600T4 PO; +MAVY1TAB; +NAPR-885 PO; +NEUR300C PO; +NICO7DIS24; +ROBA500T PO; +SUBO8MIS SL; -TAMO20TA4; +TAMO20TA8 PO; +VENTAER INH; +subutex PO
--- NOTE | 2020-10-05 09:29 | REPMRS ---
Patient History Patient has history of cancer in the right breast at age 37. Family history of unknown cancer in maternal grandmother. Took tamoxifen for 3 years. [facility] @ [facility] Digital Woman Screen Mammo: October 05, 2020 - Exam #: [id number] Bilateral CC and MLO view(s) were taken. Technologist: Cristina Cherry, Technologist FINDINGS: There are scattered fibroglandular densities. There has been no change in the appearance of the left breast parenchyma in the interval since the prior examination. No mass, architectural distortion, or microcalcific grouping has developed. No suspicious finding. 3-D tomosynthesis shows no additional findings. Volpara breast parenchymal density pattern B. Assessment: BI-RADS/ACR category 2 mammogram. Benign Findings. Recommendation Routine screening mammogram of the left breast in 1 year. This mammogram was interpreted with the aid of an FDA-approved computer-aided dectection system. Electronically Signed By: Bobo Waldrop MD 10/05/20 0996
--- NOTE | 2020-10-05 10:44 | REP ---
INDICATION: R92.2 DENSE BREAST,HX BREAST CA. History right breast cancer status post right mastectomy. COMPARISON: Comparison made with today's unilateral left breast mammogram.. TECHNIQUE: Bilateral whole breast sonography is carried out. FINDINGS: Scanning of the right post mastectomy shows no evidence of chest wall mass or abnormal fluid collection. No abnormality is noted on the right. On the left, whole breast sonography demonstrates slightly heterogeneous fibroglandular background echotexture. No cyst, mass, or acoustic shadowing is seen. IMPRESSION: BI-RADS category 2 benign findings. No suspicious sonographic abnormality. <Electronically signed by Bobo Waldrop > 10/05/20 [id number]
== END ==
LOC: M WHC 07:36
PROVIDERS: ATTEND Internal Medicine Hematology & Oncology
DX: R92.2 Inconclusive mammogram (principal); Z90.10 Acquired absence of unspecified breast and nipple; Z85.3 Personal history of malignant neoplasm of breast

== ENCOUNTER → 2021-02-01 | Outpatient (CLI) | payer OTHER ==
--- NOTE | 2021-02-01 11:49 | REP ---
INDICATION: MALIGNANT NEOPLASM OF UNSP SITE OF RIGHT BREAST/LAB COMPARISON: None. TECHNIQUE: PA and lateral. FINDINGS: The mediastinum and cardiac silhouette are normal. The lung cornejo are clear and without acute consolidation, effusion, or pneumothorax. The skeletal structures are intact and normal. Surgical clips identified in the right axillary region and right breast. IMPRESSION: No acute cardiopulmonary process. <Electronically signed by Jhonny Carr > 02/01/21 [id number]
== END ==
LOC: M RAD 10:43
PROVIDERS: ATTEND Internal Medicine Hematology & Oncology
DX: C50.911 Malignant neoplasm of unspecified site of right female breast (principal)

== ENCOUNTER → 2021-02-01 | Outpatient (CLI) | payer OTHER ==
[2021-02-01 11:28] LABS: BASO # 0.1 10^3/uL (0.0-0.2); BASO % 0.8 % (0.0-1.0); EOS # 0.1 10^3/uL (0.0-0.5); HEMATOCRIT 40.6 % (36.0-47.0); HEMOGLOBIN 13.2 g/dl (12.0-15.5); LYMPH # 2.8 10^3/uL (1.5-5.0); MEAN CORPUSCULAR HEMOGLOBIN 30.6 pg (27.0-33.0); MEAN CORPUSCULAR HGB CONC 32.5 g/dl (32.0-36.5); MEAN CORPUSCULAR VOLUME 94.2 fl (80.0-96.0); MONO # 0.4 10^3/uL (0.0-0.8); MONO % 7.1 % (2.0-8.0); NEUTROPHILS # 2.7 10^3/uL (1.5-8.5); NEUTROPHILS % 44.9 % (36.0-66.0); PLATELET COUNT, AUTOMATED 263 10^3/uL (150-450); RED BLOOD COUNT 4.31 10^6/uL (4.00-5.40)
[2021-02-01 12:05] LABS: ALBUMIN 3.8 GM/DL (3.2-5.2); ALT/SGPT 127 U/L (12-78); BILIRUBIN,TOTAL 0.3 MG/DL (0.2-1.0); BLOOD UREA NITROGEN 10 MG/DL (7-18); CALCIUM LEVEL 9.2 MG/DL (8.5-10.1); CARBON DIOXIDE LEVEL 27 MEQ/L (21-32); CHLORIDE LEVEL 104 MEQ/L (98-107); CREATININE FOR GFR 0.61 MG/DL (0.55-1.30); GLOMERULAR FILTRATION RATE > 60.0 (>60); GLUCOSE, FASTING 102 MG/DL (70-100); POTASSIUM SERUM 4.4 MEQ/L (3.5-5.1); SODIUM LEVEL 138 MEQ/L (136-145); TOTAL PROTEIN 7.6 GM/DL (6.4-8.2)
--- NOTE | 2021-02-01 21:55 | ECGEPIP ---
[facility] Test Date: 2021-02-01 Pat Name: CHAU SAMSON Department: Room: - Gender: Female Unix Administrator: ENA : 1980 Requested By: Toi Clancy Order Number: [id number] Reading MD: Artie Kinney Measurements Intervals [place] Rate: 72 P: 38 MD: 128 QRS: 57 QRSD: 96 T: 27 QT: 426 QTc: 466 Interpretive Statements Normal sinus rhythm Somewhat prominent precordial voltage with inferolateral ST/T wave abnormalities suggestive of LVH. ST/T wave abnormalities are new from 01/25/16 Clinical correlation advised Electronically Signed on 02-01-2021 21:55:29 EDT by Artie Kinney
== END ==
LOC: M LAB 10:35
PROVIDERS: ATTEND Psychiatry & Neurology Addiction Psychiatry
DX: F11.20 Opioid dependence, uncomplicated (principal)

== ENCOUNTER → 2021-02-01 | Outpatient (CLI) | payer OTHER ==
[2021-02-01 11:27] LABS: HEMATOCRIT 41.3 % (36.0-47.0); HEMOGLOBIN 13.3 g/dl (12.0-15.5); MEAN CORPUSCULAR HEMOGLOBIN 30.9 pg (27.0-33.0); MEAN CORPUSCULAR HGB CONC 32.2 g/dl (32.0-36.5); PLATELET COUNT, AUTOMATED 266 10^3/uL (150-450); WHITE BLOOD COUNT 6.3 10^3/uL (4.0-10.0)
[2021-02-01 13:11] LABS: ALT/SGPT 130 U/L (12-78); BILIRUBIN,TOTAL 0.3 MG/DL (0.2-1.0); BLOOD UREA NITROGEN 11 MG/DL (7-18); C REACTIVE PROTEIN QUANTITATIV 1.06 MG/DL (0.00-0.30); CALCIUM LEVEL 9.5 MG/DL (8.5-10.1); CARBON DIOXIDE LEVEL 29 MEQ/L (21-32); CHLORIDE LEVEL 106 MEQ/L (98-107); CREATININE FOR GFR 0.57 MG/DL (0.55-1.30); GLOMERULAR FILTRATION RATE > 60.0 (>60); GLUCOSE, FASTING 108 MG/DL (70-100); POTASSIUM SERUM 4.5 MEQ/L (3.5-5.1); RHEUMATOID FACTOR QUANT < 10.0 IU/ML (<15.0); SODIUM LEVEL 137 MEQ/L (136-145); TOTAL PROTEIN 7.8 GM/DL (6.4-8.2)
== END ==
LOC: M LAB 10:41
PROVIDERS: ATTEND Anesthesiology Pain Medicine
DX: M25.40 Effusion, unspecified joint (principal)

== ENCOUNTER → 2021-10-31 | Outpatient (CLI) | payer OTHER ==
--- NOTE | 2021-10-31 09:35 | REP ---
INDICATION: MALIG NEOPLASM OF RT BREAST, RT MASTECTOMY. COMPARISON: Multiple TECHNIQUE: Digital screening mammography of the left breast was carried out in the CC and MLO projections using both 2D and 3D modalities and compared to the prior exams. By history, the patient has no complaints of a palpable abnormality or other significant breast complaints. FINDINGS: The left breast is unchanged in size and shape. Once again, scattered dense heterogenous fibroglandular elements are seen in a stable appearing pattern. There are no jmema soft tissue densities or spiculated masses. There is no internal architectural distortion. There are no suspicious jemma calcific clusters. There is no skin thickening or nipple retraction. The Volpara volumetric breast density pattern is b. IMPRESSION: BIRADS/ACR category 1 negative mammogram. There is no evidence of malignant alteration of the left breast. This patient's Tyrer-Cuzick lifetime breast cancer risk assessment score cannot be calculated secondary to the patient's history of breast cancer This mammogram was interpreted with the aid of an FDA-approved computer-aided detection system. The patient states she had a clinical breast exam in over a year. The patient letter being requested is M1. RECOMMENDATION: Repeat screening mammography recommended 1 year (for women over 40). <Electronically signed by Malcolm Olsen > 10/31/21 0919
--- NOTE | 2021-10-31 09:47 | REP ---
INDICATION: As above COMPARISON: None TECHNIQUE: Real-time sonographic evaluation, as described above, bilaterally. FINDINGS: No cystic or solid masses are seen on either side. IMPRESSION: No evidence of an ultrasonographic abnormality. ACR category 2 <Electronically signed by Malcolm Olsen > 10/31/21 0943
== END ==
LOC: M WHC 08:34
PROVIDERS: ATTEND Internal Medicine Hematology & Oncology
DX: Z12.31 Encounter for screening mammogram for malignant neoplasm of breast (principal); Z90.10 Acquired absence of unspecified breast and nipple

== ENCOUNTER → 2022-02-13 | Outpatient (CLI) | payer OTHER | LOC: M PAIN 13:00 | PROVIDERS: ATTEND Nurse Practitioner Family | DX: M25.532 Pain in left wrist (principal); B18.2 Chronic viral hepatitis C; F41.9 Anxiety disorder, unspecified; Z85.3 Personal history of malignant neoplasm of breast; F17.210 Nicotine dependence, cigarettes, uncomplicated; Z88.5 Allergy status to narcotic agent; Z91.018 Allergy to other foods; Z79.899 Other long term (current) drug therapy ==

== ENCOUNTER → 2023-02-20 | Outpatient (CLI) | payer OTHER | LOC: M WHC 08:34 | PROVIDERS: ATTEND Internal Medicine Hematology & Oncology | DX: Z12.31 Encounter for screening mammogram for malignant neoplasm of breast (principal) ==

== ENCOUNTER 2023-04-08 12:07 | Emergency (ER) | payer OTHER ==
[~2023-04-08] VITALS: Ht 157.5 cm; Wt 89.5 kg
[2023-04-08] MEDS ORDERED: IPRATROPIUM 0.5MG/ALBUTEROL 2.5MG INH SOL UD 3ML (DUONEB) NEB ONE (13:30)
[2023-04-08 14:37] VITALS: BP 118/73; TEMP 97.9; O2SAT 99
[2023-04-08 14:42] LABS: BASO # 0.1 10^3/uL (0.0-0.2); BASO % 0.6 % (0.0-1.0); EOS # 0.1 10^3/uL (0.0-0.5); EOS % 1.4 % (0.0-3.0); HEMATOCRIT 40.8 % (36.0-47.0); HEMOGLOBIN 12.9 g/dl (12.0-15.5); LYMPH # 4.3 10^3/uL (1.5-5.0); LYMPH % 45.2 % (24.0-44.0); MEAN CORPUSCULAR HEMOGLOBIN 30.1 pg (27.0-33.0); MEAN CORPUSCULAR HGB CONC 31.6 g/dl (32.0-36.5); MEAN CORPUSCULAR VOLUME 95.1 fl (80.0-96.0); MONO # 0.5 10^3/uL (0.0-0.8); NEUTROPHILS # 4.5 10^3/uL (1.5-8.5); NEUTROPHILS % 47.4 % (36.0-66.0); PLATELET COUNT, AUTOMATED 277 10^3/uL (150-450); RED BLOOD COUNT 4.29 10^6/uL (4.00-5.40); WHITE BLOOD COUNT 9.4 10^3/uL (4.0-10.0)
[2023-04-08 15:21] LABS: CK-MB VALUE MASS < 1.0 NG/ML (<3.6); CPK CREATINE PHOSPHOKINASE 99 U/L (34-145); MB/CK RELATIVE INDEX 1.01 (< OR =4)
== END 2023-04-08 14:40 | disposition left against medical advice (07) ==
LOC: M ED 12:07
DX: R50.9 Fever, unspecified (principal); B17.9 Acute viral hepatitis, unspecified; F19.10 Other psychoactive substance abuse, uncomplicated; Z85.3 Personal history of malignant neoplasm of breast; K21.9 Gastro-esophageal reflux disease without esophagitis; Z87.442 Personal history of urinary calculi; F17.200 Nicotine dependence, unspecified, uncomplicated; Z88.5 Allergy status to narcotic agent; Z79.899 Other long term (current) drug therapy

== ENCOUNTER → 2024-01-08 | Outpatient (REF) | payer OTHER | LOC: M LAB REF 09:34 | PROVIDERS: ATTEND Surgery | DX: S41.101A Unspecified open wound of right upper arm, initial encounter (principal); B95.61 Methicillin susceptible Staphylococcus aureus infection as the cause of diseases classified elsewhere; Y92.9 Unspecified place or not applicable; Y93.9 Activity, unspecified ==